=== PATIENT | male | born 1950 | race Caucasian/White ===

== ENCOUNTER 2018-05-22 10:08 | Inpatient (IN) | payer OTHER, BC ==
--- NOTE | 2018-05-22 06:28 | PDHPUP ---
History & Physical Update H&P update statement: This history and physical update is based on an assessment of the patient which was completed after admission or registration (within 24 hours), but prior to the surgery/procedure. H&P update: H&P reviewed & patient examined, no change in patient's condition since H&P completed
[2018-05-22] MEDS ORDERED: GABAPENTIN 300 MG CAP PO ONE (10:49)
[2018-05-22] MEDS ORDERED: ACETAMINOPHEN 500 MG TAB PO ONE (10:49)
[2018-05-22] MEDS ORDERED: ceFAZolin 2 GM/DEXTROSE 100 ML IV ONE (10:49)
[2018-05-22] MEDS ORDERED: LIDOCAINE 1% 2 ML INJ ID PRN (10:50)
[2018-05-22] MEDS ORDERED: LR 1,000 ML IV ONE (10:50)
[2018-05-22] MEDS ORDERED: BUPIVACAINE 0.25% 30 ML SDV ONE (11:00)
[2018-05-22] MEDS ORDERED: THROMBIN (BOVINE) 20,000 UNIT VIAL TP ONE (11:00)
[2018-05-22] MEDS ORDERED: CHLORHEXIDINE GLUC HIBICLENS 118 ML BTL TP ONE (11:00)
[2018-05-22] MEDS ORDERED: BACITRACIN 50,000 UNITS/10 ML SYR IRR ONE (11:01)
[2018-05-22] MEDS ORDERED: EPINEPHrine 1 MG/ML INJ ONE (11:01)
[2018-05-22] MEDS ORDERED: DEXMEDETOMIDINE HCL 400 MCG in NS 100 ML IV ONE (12:30)
--- NOTE | 2018-05-22 13:01 | PDANEPAE ---
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 Spoke with neurosurg about pre-MEP/SSEPs, glidescope intubation, Randa and MAP> 85 throughout ANE Past Medical History - Cardiovascular History Hx Hypertension: Yes Hx Arrhythmias: No Hx Chest Pain: No Hx Coronary Artery / Peripheral Vascular Disease: Yes Hx CHF / Valvular Disease: No Hx Palpitations: No Cardiovascular History Comment: htn. CAD with stent placed in 2011. ischemic cardiomyopathy - Pulmonary History Hx COPD: No Hx Asthma/Reactive Airway Disease: No Hx Recent Upper Respiratory Infection: No Hx Oxygen in Use at Home: No Hx Sleep Apnea: No Sleep Apnea Screening Result - Last Documented: Positive Pulmonary History Comment: phan triggers - Neurologic History Hx Cerebrovascular Accident: No Hx Seizures: No Hx Dementia: No Neurologic History Comment: left hand is numb and palm tingles currently - Endocrine History Hx Diabetes: No Endocrine History Comment: left thyroid nodule being evaluated this week - Renal History Hx Renal Disorders: No - Liver History Hx Hepatic Disorders: No - Neurological & Psychiatric Hx Hx Neurological and Psychiatric Disorders: Yes Neurological / Psychiatric History Comment: anxiety uses melatonin to sleep - Cancer History Hx Cancer: Yes Cancer History Comment: prostate ca recently diagnosed 03/2018. oncologist will evaluate thyroid nodule as well - Congenital Disorder History Hx Congenital Disorders: No - GI History Hx Gastrointestinal Disorders: Yes Gastrointestinal History Comment: reflux- uses omeprazole prn - Other Health History Other Health History: wears glasses for reading. doesn't like to wear hearing aides - Chronic Pain History Chronic Pain: No - Surgical History Prior Surgeries: appy 1962. vasectomy 1982. removed left salivary gland 1983. broken right wrist repair 1998. left shoulder clean up surgery 2007. cardiac stent 2011. right shoulder separation surgery 2014 ANE Review of Systems Review of Systems: - Exercise capacity METS (RN): 4 METS ANE Patient History - Allergies Allergies/Adverse Reactions: No Known Allergies Allergy (Verified 05/22/18 10:52) - Home Medications Home Medications: Atorvastatin Calcium [Lipitor 20 mg (*)] 20 mg PO HS 05/07/18 [Last Taken 21:00] Carvedilol [Coreg (*)] 3.125 mg PO BIDMEAL 05/07/18 [Last Taken 05/21/18 21:00] Clopidogrel Bisulfate [Plavix (*)] 75 mg PO HS 05/07/18 [Last Taken 05/12/18] Digoxin [Lanoxin 125 mcg (RX)] 125 mcg PO HS 05/07/18 [Last Taken 05/21/18 21:00 ] Fexofenadine HCl [Annamaria Allergy] 180 mg PO DAILY PRN 05/07/18 [Last Taken ] Melatonin [Melatonin 5 mg] 10 mg PO HS PRN 05/07/18 [Last Taken 05/21/18 21:00] Omeprazole 40 mg PO DAILY PRN 05/07/18 [Last Taken 03/07/18] Ramipril [Altace 2.5mg (*)] 2.5 mg PO HS 05/07/18 [Last Taken 05/21/18 21:00] - NPO status NPO Since - Liquids (Date): 05/22/18 NPO Since - Liquids (Time): 08:00 NPO Since - Solids (Date): 05/21/18 NPO Since - Solids (Time): 20:00 - Smoking Hx Smoking Status: Former smoker - Family Anes Hx Family Hx Anesthesia Complications: none ANE Labs/Vital Signs - Vital Signs Blood Pressure: 150/77 Heart Rate: 57 Respiratory Rate: 14 O2 Sat (%): 94 Height: 172.72 cm Weight: 79.832 kg ANE Physical Exam - Airway Neck exam: decreased ROM Mallampati Score: Class 3 Mouth exam: normal dental/mouth exam - Pulmonary Pulmonary: no respiratory distress, no rales or rhonchi - Cardiovascular Cardiovascular: regular rate and rhythym, no murmur, rub, or gallop - ASA Status ASA Status: III ANE Anesthesia Plan Anesthesia Plan: general endotracheal anesthesia Lines/Monitors: arterial line (MAP> 85, Glidescope intubation) Total IV Anesthesia: Yes
[2018-05-22] MEDS ORDERED: MIDAZOLAM 2 MG/2 ML VIAL ONE (13:02)
[2018-05-22] MEDS ORDERED: MIDAZOLAM 2 MG/2 ML VIAL IVP ONE (13:02)
[2018-05-22] MEDS ORDERED: SUCCINYLCHOLINE CHLORIDE 200 MG/10 ML SYR IVP ONE (13:09)
[2018-05-22] MEDS ORDERED: POLYETHYLENE GLYCOL 3350 17 GM PKT PO PRN (13:09)
[2018-05-22] MEDS ORDERED: LACTULOSE 20 GM/30 ML UDCUP PO PRN (13:09)
[2018-05-22] MEDS ORDERED: morphINE PCA 30 MG/30 ML PCA IV PRN (13:09)
[2018-05-22] MEDS ORDERED: NALOXONE HCL 0.4 MG/ML INJ IVP PRN ×2 (13:09→17:56)
[2018-05-22] MEDS ORDERED: diphenhydrAMINE 25 MG CAP PO PRN (13:09)
[2018-05-22] MEDS ORDERED: PROPOFOL 200 MG/20 ML VIAL ONE (13:09)
[2018-05-22] MEDS ORDERED: HYDROmorphONE/DILAUDID 1 MG/ML INJ IVP PRN (13:09)
[2018-05-22] MEDS ORDERED: MAGNESIUM HYDROXIDE 30 ML UDCUP PO PRN (13:09)
[2018-05-22] MEDS ORDERED: PROPOFOL/EMULSION 500 MG/50 ML BOTTLE IV ONE ×5 (13:09→17:18)
[2018-05-22] MEDS ORDERED: LIDOCAINE 2% 100 MG/5 ML SYR ONE (13:09)
[2018-05-22] MEDS ORDERED: REMIFENTANIL HCL 1 MG VIAL ONE ×2 (13:09→15:28)
[2018-05-22] MEDS ORDERED: ONDANSETRON DISINTEGRATING 4 MG TAB PO PRN (13:09)
[2018-05-22] MEDS ORDERED: BISACODYL 10 MG SUPP PR PRN (13:09)
[2018-05-22] MEDS ORDERED: ONDANSETRON 4 MG/2 ML VIAL IVP PRN ×2 (13:09→17:56)
[2018-05-22] MEDS ORDERED: LIDOCAINE HCL 160 MG/4 ML LTA KIT TP ONE (13:09)
[2018-05-22] MEDS ORDERED: NS 1,000 ML IV SCH (13:15)
[2018-05-22] MEDS ORDERED: DEXAMETHASONE 4 MG/ML VIAL ONE (14:34)
[2018-05-22] MEDS ORDERED: HYDROmorphONE/DILAUDID 2 MG/ML INJ ONE (17:33)
[2018-05-22] MEDS ORDERED: ONDANSETRON 4 MG/2 ML VIAL ONE (17:42)
[2018-05-22] MEDS ORDERED: fentaNYL 100 MCG/2 ML INJ IVP PRN (17:56)
[2018-05-22] MEDS ORDERED: oxyCODONE IR 5 MG TAB PO PRN (17:56)
[2018-05-22] MEDS ORDERED: PHENYLEPHRINE HCL 100 MCG/ML SYR IVP PRN (17:56)
[2018-05-22] MEDS ORDERED: MEPERIDINE 25 MG/0.5 ML AMP IVP PRN (17:56)
[2018-05-22] MEDS ORDERED: PROMETHAZINE HCL 25 MG/ML INJ IVP PRN (17:56)
[2018-05-22] MEDS ORDERED: METOCLOPRAMIDE 10 MG/2 ML VIAL IVP PRN (17:56)
[2018-05-22] MEDS ORDERED: ACETAMINOPHEN 500 MG TAB PO PRN (17:56)
[2018-05-22] MEDS ORDERED: ALBUTEROL 3 ML DEYVIAL IH PRN (17:56)
[2018-05-22] MEDS ORDERED: LR 500 ML IV PRN (17:56)
[2018-05-22] MEDS ORDERED: HYDROCODONE/APAP 5/325 TAB PO PRN (17:56)
[2018-05-22] MEDS ORDERED: DEXAMETHASONE 4 MG/ML VIAL IVP PRN (17:56)
[2018-05-22] MEDS ORDERED: LABETALOL HCL 5 MG/ML 20 ML MDV IVP PRN (17:56)
--- NOTE | 2018-05-22 18:22 | POSTOPPROG ---
Post Op Note Date of Operation: 05/22/18 Surgeon: Erlin Lara Installer: ANGELIQUE Arceo Anesthesiologist: DO Eva Anesthesia: GET(General Endotracheal), Local (Specify) Pre-op Diagnosis: critical cervical stenosis C3-C6 Post-op Diagnosis: cervical stenosis C3-C6 Indication: UE pain, myelopathy, cord compression Procedure: ACDF C5/6 with C4 corpectomy with Anterior spine fusion C3-C6 Findings: see op report Inf/Abcess present in the surg proc area at time of surgery?: No Depth: Deep Incisional (Fascial) EBL: 100-500 Total fluids administered: see anesthesia record Complications: none
--- NOTE | 2018-05-22 18:25 | SOAPPROG ---
SOAP Progress Note Assessment/Plan: Post Op Visit: S: Awake and alert. NAD. Pt with expected neck pain O: AFVSS/PERRLA/EOMI no droop CN 2-12 grossly intact +lt touch neck soft and supple CDI A/P: 67 yo male that is s/p C4 corpectomy with ACDF C3-C6 -orders in place -call with any questions or concerns -take medications as directed -pt seen by Dr Lara -admit to 2N -collar at all times -PT/OT/ST -post op xrays in am Objective: Vital Signs Temp Pulse Resp BP Pulse Ox 36.4 C 57 L 14 150/77 H 94 05/22/18 11:52 05/22/18 13:02 05/22/18 13:02 05/22/18 13:02 05/22/18 13:02 ICD10 Worksheet Patient Problems: Problems Problem Status Onset Arthrodesis status Acute Cervical spinal stenosis Acute Myelopathy Acute Spinal cord compression Acute 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 - ICD10 Problem Qualifiers (1) Cervical spinal stenosis (2) Myelopathy (3) Spinal cord compression (4) Spinal cord compression due to degenerative disorder of spinal column (5) Arthrodesis status
--- NOTE | 2018-05-22 19:06 | PDHOSCONS ---
History and Physical - Chief Complaint medical mgmt - History of Present Illness The pt is a 67 yo male with hx of HTN, CAD, Ischemic cardiomyopathy, CHF- systolic, LBBB, possible OTTO, and prostate cancer who is post op Day 0 s/p ACDF , c4 corpectomy, and c3-6 anterior fusion. We have been asked to provide medical management. He appears stable post op. Denies pain. VS are stable. History is mostly obtained form the medical record. PMHx: HLD, HTN, CAD, Ischemic Cardiomyopathy, CHF-Systolic, LBBB, possible OTTO, Left thyroid nodule, Insomnia, Anxiety, GERD, Prostate Cancer, PSHx: appendectomy SocHx: no tobacco use FmHx: non contributory History Information - Allergies/Home Medication List Allergies/Adverse Reactions: No Known Allergies Allergy (Verified 05/22/18 10:52) Home Medications: Atorvastatin Calcium [Lipitor 20 mg (*)] 20 mg PO HS 05/07/18 [Last Taken 21:00] Carvedilol [Coreg (*)] 3.125 mg PO BIDMEAL 05/07/18 [Last Taken 05/21/18 21:00] Clopidogrel Bisulfate [Plavix (*)] 75 mg PO HS 05/07/18 [Last Taken 05/12/18] Digoxin [Lanoxin 125 mcg (RX)] 125 mcg PO HS 05/07/18 [Last Taken 05/21/18 21:00 ] Fexofenadine HCl [Annamaria Allergy] 180 mg PO DAILY PRN 05/07/18 [Last Taken ] Melatonin [Melatonin 5 mg] 10 mg PO HS PRN 05/07/18 [Last Taken 05/21/18 21:00] Omeprazole 40 mg PO DAILY PRN 05/07/18 [Last Taken 03/07/18] Ramipril [Altace 2.5mg (*)] 2.5 mg PO HS 05/07/18 [Last Taken 05/21/18 21:00] I have personally reviewed and updated: medical history, social history - Social History Smoking Status: Former smoker Review of Systems Review of Systems: ROS: 10pt was reviewed & negative except for what was stated in HPI & below Physical Exam Physical Exam: Temp Pulse Resp BP Pulse Ox 36.5 C 59 L 18 124/58 H 95 05/22/18 19:02 05/22/18 18:17 05/22/18 19:02 05/22/18 19:02 05/22/18 19:03 O2 (L/minute) 6 Constitutional: no apparent distress Eyes: PERRL, EOMI Ears, Nose, Mouth, Throat: moist mucous membranes Cardiovascular: regular rate and rhythym, No edema Respiratory: no respiratory distress, no rales or rhonchi Gastrointestinal: normoactive bowel sounds Skin: warm Neurologic: No AAOx3 Psychiatric: encephalopathic Lymph, Heme, Immunologic: No petechiae Assessment & Plan Assessment: Arthrodesis status (Acute) Cervical spinal stenosis (Acute) Myelopathy (Acute) Spinal cord compression (Acute) Spinal cord compression due to degenerative disorder of spinal column (Acute) #s/p ACDF, C4 Corpectomy, C3-6 Anterior Fusion on 05/22 -post op care per NSG -DVT proph per NSg #HTN #Ischemic cardiomyopathy, CHF -Systolic not in exacerbation, LBBB #CAD #possible OTTO #Insomnia #Anxiety #GERD #Prostate Cancer #Left Thyroid Nodule Plan: cont BB cont Digoxin Cont Statin Hold Plavix DVT proph per NSG Pain mgmt cont appropriate home meds overall appears stable post operatively Thank you for this consult, we will follow along with you
[2018-05-22] MEDS: METHOCARBAMOL 750 MG TAB PO PRN (20:38)
[2018-05-22] MEDS ORDERED: MELATONIN 3 MG TAB PO PRN (21:00)
--- NOTE | 2018-05-22 21:12 | PDMN ---
Medical Necessity Medical necessity: [facility] [place] S320 Cervical Fusion, Anterior, A-1 day: 67 yo s/p ACDF C5/6 cervical disc fusion anterior, corpectomy c4, c3-c6 fusion: Corpectomy plus multi level surg meets IP med nec for IP stay.
[2018-05-22] MEDS: SENNOSIDES/DOCUSATE SODIUM TAB PO SCH (22:13)
[2018-05-22] MEDS: ATORVASTATIN CALCIUM 20 MG TAB PO SCH (22:14)
[2018-05-22] MEDS: FAMOTIDINE 20 MG TAB PO SCH (22:15)
[2018-05-22] MEDS: RAMIPRIL 2.5 MG CAP PO SCH (22:20)
[2018-05-22] MEDS: DIGOXIN 125 MCG TAB PO SCH (22:23)
[2018-05-22] MEDS: ceFAZolin 2 GM/DEXTROSE 100 ML IV SCH (22:37)
[2018-05-22] MEDS: HYDROCODONE/APAP 5/325 TAB PO PRN (23:43)
[2018-05-23] MEDS: ACETAMINOPHEN 500 MG TAB PO SCH ×5 (00:47→21:30)
[2018-05-23] MEDS: GABAPENTIN 300 MG CAP PO SCH ×5 (00:47→21:27)
[2018-05-23] MEDS: CARVEDILOL 3.125 MG TAB PO SCH ×3 (00:49→18:22)
[2018-05-23] MEDS: oxyCODONE IR 5 MG TAB PO PRN ×3 (04:58→21:49)
[2018-05-23] MEDS: ceFAZolin 2 GM/DEXTROSE 100 ML IV SCH (05:04)
[2018-05-23 06:21] LABS: PLATELET COUNT 226 10^3/uL (150-400)
--- NOTE | 2018-05-23 06:38 | GOP ---
[f rep st] OPERATIVE REPORT DATE OF OPERATION: 05/22/2018 SURGEON: Gideon Lara MD MACHINE BUNCH MAKER: Hammad Arceo PA-C. PREOPERATIVE DIAGNOSIS: Severe spinal stenosis C3-4, C4-5; moderately severe spinal stenosis C5-6; c ord compression; myelomalacia; myelopathy. POSTOPERATIVE DIAGNOSIS: Severe spinal stenosis C3-4, C4-5; moderately severe spinal stenosis C5-6; cord compression; myelomalacia; myelopathy. PROCEDURE PERFORMED: 1. Anterior cervical corpectomy with complete removal of the C4 vertebral body and decompression of the spinal canal behind the vertebral body of C4. We did anterior cervical diskectomy with bilateral decompressions C3-4 and C4-5 (67848, [id number]). Cervical corpectomy code of [id number]. 2. We did an anterior cervical diskectomy and decompression at C5-6 as well (89828). Anterior cervi marci instrumentation 4 levels C3, C4, C5, C6 (25069). 3. Placement of biomechanical intervertebral device at the C4 corpectomy site. 4. Placement of biomechanical intervertebral device at C5-6 (26897 x2). 5. Same incision bone graft harvest. FINDINGS: ESTIMATED BLOOD LOSS: 150 cc. INDICATIONS: The patient is a 67-year-old gentleman who came to see me with evidence of cervical mye lopathy on physical exam and profound cervical spinal stenosis at C3-4. On the left side at that lev el, the canal diameter measured 2 mm with flattening particularly of the left cervical cord, but ther e was a broad-based disk and osteophyte, complex at that level. There is also evidence of ossificati on of the posterior longitudinal ligament on the MRI with a large osteophyte behind the C3 vertebral body that was not particularly compressive, but it was concerning as it was in the midline. There we re some similar findings behind the vertebral body of C4, but not really comparable to what we saw at C3-4, and there was severe stenosis at C4-5 as well with very severe flattening of the cord even at that level. I suggested a 3 level anterior cervical diskectomy and fusion at C3-4, 4-5, 5-6, but I d id discuss with the patient the possibility of a corpectomy of C4 depending on what we found. I was concerned about the possibility of ossification of the posterior longitudinal ligament, but I was als o concerned given the severity of his stenosis my ability to adequately decompress the spinal canal a t those 2 levels with diskectomies alone. There was significant bone osteophyte formation behind the disk space and I wanted to make sure that we were able to completely decompress the cord and spinal canal there safely. I was somewhat concerned about diving through the PLL at the level of the actual discs at C3-4, 4-5, where there was such severe stenosis, and I discussed with the patient that isabel ectomy might be safer. I was going to make that decision intraoperatively, but he knew it was likely that a C4 corpectomy would be done. The risk of adjacent segment disease, nerve injury, spinal cord injury including quadriplegia was discussed. He knew there was a risk of dysphagia, esophageal inju ry, carotid injury, recurrent laryngeal nerve injury, screw and hardware malposition, malfunction, th e possible need for additional surgery including a posterior fixation surgery. He wanted to proceed despite these risks. I thought the likelihood was that we could do all this through the front. He a ccepted all these risks and wanted to proceed. DESCRIPTION OF PROCEDURE: The patient was brought to the operating room. He was intubated by the an esthesia service and care was taken to keep his MAPS above 85 throughout surgery. A glide scope was used. His neck was kept neutral after intubation. Baseline motors were performed before the patient was moved onto the bed, these demonstrated good responses. There were no concerns. An arterial bin e was placed by the anesthesia service, and this took us some time to accomplish. He was then moved over to the operating room table where a midline shoulder roll was placed and his head was carefully positioned on the repairer cylinder heads. The neck was kept neutral, the occiput gently extended. He was steri edgard prepped and draped in the usual fashion. In this case, we made a longitudinal incision in the neck up and down along the sternocleidomastoid. We dissected down through the platysma and then used a combination of sharp and blunt dissection med ial to the sternocleidomastoid and lateral to the strap muscles down to the prevertebral space. The carotid sheath, the vagus nerve and its contents were identified, and we found it relatively straight forward to get down the spinal canal. We dissected rostrally to get to the C3-4 level, and then diss ected all the longus colli muscles off the spine at C3, C4, C5, and C6. We then removed the ventral osteophytes at C3-4, C4-5, C5-6, and then placed a distraction pin at C3 and a distraction pin at C5. We then shot an x-ray and the pins were in excellent position. The C3-4 disk had a relatively shal low angle on it and our exposure from below really was going to make it very difficult to get a wide decompression at C3-4. There was no way that we were going to be radically able to remove the rostra l posterior lip of C4 from that approach, and because of this as well as the severity of the stenosis and my concern about causing a cord injury, I thought it was more prudent after looking at this alig nment that we should do a C4 corpectomy. We therefore distracted between the distraction pins, evoked potentials were done, the motors were fi ne. We then removed the disk and the soft tissues surrounding the C3-4 disk and the C4-5 disk comple tely. We removed all the soft tissue from this ventral portion of C4. We then took a Leksell and mosley rvested almost all of the C4 vertebral body, and then used the drill to perform the remaining corpect garrick down to the posterior margin of the vertebral body. We opened the posterior longitudinal ligamen t behind the C4 vertebral body where the stenosis was not as severe, and then worked our way toward t he C3-4 and the C4-5 disk space. I was worried about dural adhesions, and so I was very, very carefu l as I went through the posterior longitudinal ligament. It turned out there was indeed a plane betw een the dura and the PLL, and I was happy about this. We worked our way inferiorly toward the C4-5 l evel and rostrally toward the C3-4 level. We completely decompressed C3-4 centrally. There was inde ed an osteophyte behind C3 and I removed the inferior lip of this, but we could not obviously get com pletely behind the C3 vertebral body. We worked our way out into the neural foramen at C3-4, and the n came down to C4-5 where we decompressed from the pedicle to the pedicle and g ot great decompressions and did foraminotomies here. Motor evoked potentials were stable. We stacke d a 25 mm anatomic PTC cage to be placed at the C3-4 level, packed it with a large amount of bone aut ograft. It was then inserted and carefully positioned under fluoroscopic guidance, and I was happy w ith the position of that device. We then removed our distraction pin, placed a Gel-Foam bullet in the hole that remained, and then cam e down at C6, distracted at C5-6, and under the microscope we removed the disk and the cartilaginous endplates. We opened the posterior longitudinal ligament, decompressed the thecal sac and the neural foramina bilaterally, got great decompressions there. We then chose an 8 mm PEEK intervertebral dev ice, packed it with bone autograft, it was inserted at C5-6. We shot an x-ray. All the hardware was in great position. Motor evoked potentials were perfect. We then took a 65 mm Zevo plate, increase d the lordosis on the plate, and placed a single screw at C3, a single screw at C6, they were firmly seated. We then checked an x-ray and then we placed the remaining screw at C3, this screw was the le ft screw at C3. We used a 17 mm screw there. We use 15 mm screws at C5 and C6. There were a total of 6 screws and they were all locked according to company specification and verified with people in t he room. Final x-ray looked excellent. We then achieved meticulous hemostasis and then closed the incision in multiple layers using Vicryl s uture. Steri-Strips were applied the skin. The patient was reversed from anesthesia, extubated, and transferred to recovery room in stable condition. There were no complications. COMPLICATIONS: None. /[id number]/MODL
--- NOTE | 2018-05-23 07:15 | NEUSURGPN ---
Date of Surgery: 05/22/18 Post Op Day: 1 Assessment/Plan: Assessment: 67 yo male that is s/p C4 corpectomy with ACDF C3-C6 POD #1 Plan: -orders in place -take medications as directed -pt seen by Dr Lara -pt doing well -ivan curiel this am -ok to go to 3N -continue to monitor swallowing -CDI -collar at all times-tolerating well-no skin issues -PT/OT/ST -post op xrays pending this am -warning signs given -call with any questions Subjective: Awake and alert. Pt rested fine. No new complaints or concerns. No mosley/cp/sob/ abd or gu complaints. No f/c/n/v/d. Objective: AFVSS/PERRLA/EOMI no droop CN 2-12 grossly intact +lt touch neck soft and supple CDI Neuro Check Frequency: per routine Urinary Catheter in Place: Yes Urinary Catheter Indication: Other (Use Comment) (to be removed this am) Catheter Insertion Date: 05/22/18 - Physician Discussed Patient with : Marco Patient Seen by : Marco Neurosurgery Physical Exam - Vitals, I&O, Labs I and O 05/22/18 05/23/18 05/24/18 05:59 05:59 05:59 Intake Total 2524 Output Total 2250 Balance 274 Weight 79.832 kg Intake: IV Intake (ml) 1900 IV Infused (ml) 624 Ns 1,000 ml @ 75 mls/hr 624 IV CONT BETTY Rx#: [id number] Output: Urine (ml) 2100 Catheter 2100 Estimated Blood Loss (ml) 150 Vital Signs Temp Pulse Resp BP Pulse Ox 36.3 C 58 L 10 L 147/99 H 93 05/22/18 20:00 05/23/18 04:00 05/23/18 03:00 05/23/18 04:00 05/23/18 04:00 Laboratory Results 05/23/18 05:45 05/23/18 05:45 ICD10 Worksheet Patient Problems: Problems Problem Status Onset Arthrodesis status Acute Cervical spinal stenosis Acute Myelopathy Acute Spinal cord compression Acute 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 - ICD10 Problem Qualifiers (1) Cervical spinal stenosis (2) Myelopathy (3) Spinal cord compression (4) Spinal cord compression due to degenerative disorder of spinal column (5) Arthrodesis status
[2018-05-23] MEDS ORDERED: CETIRIZINE 10 MG TAB PO PRN (09:00)
[2018-05-23] MEDS ORDERED: PANTOPRAZOLE SODIUM 40 MG TAB PO PRN (09:00)
[2018-05-23] MEDS: SENNOSIDES/DOCUSATE SODIUM TAB PO SCH ×2 (09:45→21:28)
[2018-05-23] MEDS: FAMOTIDINE 20 MG TAB PO SCH ×2 (09:45→21:27)
--- NOTE | 2018-05-23 11:42 | ASMTCASEMG ---
Living Arrangements What is your living Answers: With Spouse arrangement? Who do you live with? Type Of Residence What kind of residence do Answers: House you live in? Discharge Plan Comments Coordination Status Comments Notes: Patient is a 67yo male who comes to [facility] for surgery due to neuropathy of left hand and spinal stenosis, cervical region. OT/PT evals have been ordered. D/C plan TBD. CM will follow. Date Signed: 05/23/2018 11:42 AM Electronically Signed By:Lindsay Norwood LCSW
[2018-05-23] MEDS: HYDROCODONE/APAP 5/325 TAB PO PRN (12:02)
[2018-05-23] MEDS: METHOCARBAMOL 750 MG TAB PO PRN (15:03)
--- NOTE | 2018-05-23 17:18 | HOSPPROG ---
Hospitalist Progress Note Assessment/Plan: 67 yo M pod 1 from ACDF. COmorbidities noted CHF: euvolemic per pt, ef has normalized continue carvedilol, digoxin, FLOR-I cad: last stent years ago, ok to hold antiplatelet prostate ca: continue casodex pain: well controlled proph: given prostate CA and antiandrogen therapy, he his high risk for VTE rec pharm VTE proph when ok from neurosurgical standpoint Subjective: pain well controlled. walking in hallway Objective: Vital Signs Temp Pulse Resp BP Pulse Ox 36.5 C 62 16 140/76 H 96 05/23/18 15:14 05/23/18 15:14 05/23/18 15:14 05/23/18 15:14 05/23/18 15:14 Laboratory Results 05/23/18 05:45 05/23/18 05:45 05/22/18 05/23/18 05/24/18 05:59 05:59 05:59 Intake Total 2524 414 Output Total 2250 235 Balance 274 179 - Physical Exam Constitutional: no apparent distress, appears nourished Eyes: PERRL, anicteric sclera Ears, Nose, Mouth, Throat: moist mucous membranes, hearing normal, other (neck in hard collar) Cardiovascular: regular rate and rhythym, no murmur, rub, or gallop Respiratory: no respiratory distress, no rales or rhonchi Gastrointestinal: normoactive bowel sounds, soft, non-tender abdomen Genitourinary: no bladder fullness, No curiel in urethra Skin: warm, normal color Musculoskeletal: full muscle strength ICD10 Worksheet Patient Problems: Problems Problem Status Onset Arthrodesis status Acute Cervical spinal stenosis Acute Myelopathy Acute Spinal cord compression Acute 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
[2018-05-23] MEDS: ATORVASTATIN CALCIUM 20 MG TAB PO SCH (21:27)
[2018-05-23] MEDS: BICALUTAMIDE 50 MG TAB PO SCH (21:30)
[2018-05-23] MEDS: RAMIPRIL 2.5 MG CAP PO SCH (21:41)
[2018-05-23] MEDS: DIGOXIN 125 MCG TAB PO SCH (21:42)
[2018-05-24] MEDS: METHOCARBAMOL 750 MG TAB PO PRN ×4 (03:52→17:05)
[2018-05-24] MEDS: GABAPENTIN 300 MG CAP PO SCH ×3 (05:28→20:38)
[2018-05-24] MEDS: ACETAMINOPHEN 500 MG TAB PO SCH (05:28)
[2018-05-24] MEDS: HYDROCODONE/APAP 5/325 TAB PO PRN ×5 (05:30→22:14)
--- NOTE | 2018-05-24 08:57 | NEUSURGPN ---
Date of Surgery: 05/22/18 Post Op Day: 2 Assessment/Plan: 67 yo male that is s/p C4 corpectomy with ACDF C3-C6 POD #2 Plan: - neuro stable - pain control - monitor swallowing, slightly worse this morning. Speech therapy to see - postop x-rays with hardware in good placement - PT/OT - Hard collar - dispo: likely discharge tomorrow Discussed with Dr. Lara. Subjective: Having some difficulties swallowing this morning. Objective: Awake. Alert. PERRL. EOMI Muscle strength full at 5/5 Sensation intact Incision c/d/i Catheter Insertion Date: 05/22/18 - Physician Discussed Patient with : Marco Neurosurgery Physical Exam - Vitals, I&O, Labs I and O 05/23/18 05/24/18 05/25/18 05:59 05:59 05:59 Intake Total 2524 814 Output Total 2250 235 Balance 274 579 Weight 79.832 kg Intake: Oral (ml) 515 IV Intake (ml) 1900 IV Infused (ml) 624 299 Ns 1,000 ml @ 75 mls/hr 624 299 IV CONT BETTY Rx#: [id number] Output: Urine (ml) 2100 235 Catheter 2100 235 Estimated Blood Loss (ml) 150 Other: Intake Quantity Yes Sufficient Number of Voids Catheter 1 Vital Signs Temp Pulse Resp BP Pulse Ox 36.3 C 67 17 144/65 H 94 05/24/18 07:17 05/24/18 07:17 05/24/18 07:17 05/24/18 07:17 05/24/18 07:17 Laboratory Results 05/23/18 05:45 05/23/18 05:45 ICD10 Worksheet Patient Problems: Problems Problem Status Onset Arthrodesis status Acute Cervical spinal stenosis Acute Myelopathy Acute Spinal cord compression Acute 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
[2018-05-24] MEDS: FAMOTIDINE 20 MG TAB PO SCH ×2 (09:12→20:38)
[2018-05-24] MEDS: SENNOSIDES/DOCUSATE SODIUM TAB PO SCH ×2 (09:13→20:39)
[2018-05-24] MEDS: CARVEDILOL 3.125 MG TAB PO SCH ×2 (09:13→17:05)
[2018-05-24] MEDS ORDERED: ACETAMINOPHEN 325 MG TAB PO PRN (09:51)
--- NOTE | 2018-05-24 11:01 | ASMTCMCOM ---
CM Note CM Note Notes: CM met with pt. He reports he was feeling better yesterday and wants to stay here until he is feeling better again. Pt and asked about hospital bed, CM spoke to PA and she said he wouldn't likely qualify for one, CM updated family and they were understanding. CM provided list if they wanted to attempt to rent one independently, pt and family agreeable. CM submit referral for [facility]. Pt and appreciative, pt qualifies due to type of surgery. Plan: home with [facility] Date Signed: 05/24/2018 11:01 AM Electronically Signed By:KIMBERLI Coreas
--- NOTE | 2018-05-24 17:14 | HOSPPROG ---
Hospitalist Progress Note Assessment/Plan: 67 yo M pod 2 from ACDF. COmorbidities noted CHF: euvolemic per pt, ef has normalized continue carvedilol, digoxin, FLOR-I cad: last stent years ago, ok to hold antiplatelet prostate ca: continue casodex pain: well controlled proph: given prostate CA and antiandrogen therapy, he his high risk for VTE rec pharm VTE proph when ok from neurosurgical standpoint Subjective: feels better this PM Objective: Vital Signs Temp Pulse Resp BP Pulse Ox 36.7 C 64 18 123/59 H 92 05/24/18 15:47 05/24/18 17:05 05/24/18 15:47 05/24/18 17:05 05/24/18 15:47 Laboratory Results 05/23/18 05:45 05/23/18 05:45 05/23/18 05/24/18 05/25/18 05:59 05:59 05:59 Intake Total 2524 814 Output Total 2250 235 Balance 274 579 - Physical Exam Constitutional: no apparent distress, appears nourished Eyes: PERRL, anicteric sclera Ears, Nose, Mouth, Throat: moist mucous membranes, hearing normal Cardiovascular: regular rate and rhythym, no murmur, rub, or gallop, No systolic murmur Respiratory: no respiratory distress, no rales or rhonchi Gastrointestinal: normoactive bowel sounds, soft, non-tender abdomen Genitourinary: no bladder fullness, No curiel in urethra Skin: warm, normal color Musculoskeletal: full muscle strength ICD10 Worksheet Patient Problems: Problems Problem Status Onset Arthrodesis status Acute Cervical spinal stenosis Acute Myelopathy Acute Spinal cord compression Acute 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
[2018-05-24] MEDS: ATORVASTATIN CALCIUM 20 MG TAB PO SCH (20:36)
[2018-05-24] MEDS: BICALUTAMIDE 50 MG TAB PO SCH (20:36)
[2018-05-24] MEDS: DIGOXIN 125 MCG TAB PO SCH (20:37)
[2018-05-24] MEDS: RAMIPRIL 2.5 MG CAP PO SCH (20:40)
[2018-05-25] MEDS: HYDROCODONE/APAP 5/325 TAB PO PRN ×3 (02:08→10:59)
[2018-05-25] MEDS: GABAPENTIN 300 MG CAP PO SCH (05:48)
[2018-05-25] MEDS: METHOCARBAMOL 750 MG TAB PO PRN (05:50)
[2018-05-25] MEDS ORDERED: ENOXAPARIN 40 MG/0.4 ML SYR SC SCH (09:00)
[2018-05-25] MEDS: SENNOSIDES/DOCUSATE SODIUM TAB PO SCH (09:26)
[2018-05-25] MEDS: FAMOTIDINE 20 MG TAB PO SCH (09:26)
[2018-05-25] MEDS: CARVEDILOL 3.125 MG TAB PO SCH (09:26)
--- NOTE | 2018-05-25 12:13 | NEUSURGPN ---
Date of Surgery: 05/22/18 Post Op Day: 3 Assessment/Plan: 67 yo male that is s/p C4 corpectomy with ACDF C3-C6 POD #3. swallow stable. pain controlled. Post op films look great. Plan: - Home today Discussed with Dr. Lara. Subjective: some trouble with fijian muffin but otherwise no issues with swallow. No secretions, no coughing. He has some minor shoulder pain but well controlled. NO extremity complaints. Objective: AAOx4 NAD cnii-xii grossly intact speech clear, voice strong eomi, PEARLA MAEx4, 5/5= SILT incision CDI. Catheter Insertion Date: 05/22/18 - Physician Discussed Patient with : [facility] Physical Exam - Vitals, I&O, Labs I and O 05/24/18 05/25/18 05/26/18 05:59 05:59 05:59 Intake Total 814 500 Output Total 235 Balance 579 500 Intake: Oral (ml) 515 500 IV Infused (ml) 299 Ns 1,000 ml @ 75 mls/hr 299 IV CONT BETTY Rx#: [id number] Output: Urine (ml) 235 Catheter 235 Other: Intake Quantity Yes Sufficient Number of Voids Catheter 1 Toilet 3 Vital Signs Temp Pulse Resp BP Pulse Ox 36.9 C 64 16 155/67 H 93 05/25/18 07:38 05/25/18 09:26 05/25/18 07:38 05/25/18 09:26 05/25/18 07:38 Laboratory Results 05/23/18 05:45 05/23/18 05:45 ICD10 Worksheet Patient Problems: Problems Problem Status Onset Arthrodesis status Acute Cervical spinal stenosis Acute Myelopathy Acute Spinal cord compression Acute 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
[2018-05-25 12:41] VITALS: BP 164/81
--- NOTE | 2018-05-25 13:41 | ASMTLACE ---
[facility] Length of stay for Answers: 3 days current admission Acuity / Level of Answers: Yes Care: Did the patient have an inpatient admission? Comorbidities - select Answers: Any tumor (including all that apply lymphoma or leukemia) Coronary Artery Disease Other Notes: HTN # of Emergency department Answers: 0 visits in the last 6 months Social determinants Answers: Mental health diagnosis (anxiety, depression, pers onality disorders, etc.) Score: 14 Date Signed: 05/25/2018 01:40 PM Electronically Signed By:Mis Priest
--- NOTE | 2018-05-25 13:44 | ASMTDCNOTE ---
Case Management Discharge Discharge Order Complete? Answers: Yes Patient to Obtain Answers: via Family Medications Transportation Arranged Answers: Family/Friends Faxed Final Orders Answers: Yes Agency/Facility Transfer Answers: Yes Report Printed & Faxed to Receiving Agency Family Notified Answers: Yes Discharge Comments Notes: Pt to receive homecare through [facility]. [facility] notified of pt's d/c. Date Signed: 05/25/2018 01:43 PM Electronically Signed By:Mis Priest
--- NOTE | 2018-05-25 14:04 | GDS ---
[f rep st] DISCHARGE SUMMARY PROCEDURES: C4 corpectomy with C3-6 ACDF. CONSULTING TEAMS,: The hospitalist team. HOSPITAL COURSE: The patient is a pleasant 67-year-old male who was admitted after an elective C3-6 ACDF and C4 corpectomy for myeloradiculopathy. Postoperatively he did well. His diet was advanced. His pain was controlled. His postoperative films showed stable hardware in good position. He did h ave some issues with his swallowing that were minor and is doing well with a good oral intake. He wa s seen by PT and OT and ultimately cleared for discharge on 05/25/2018. See dated service progress n ote for neurological, physical exam and vitals. Please see final date of discharge planning for home medication and reconciliation. Patient should follow up with Dr. Lara in 2 weeks time for a posto perative wound check. /[id number]/MODL
== END 2018-05-25 13:48 | disposition home or self-care (01) | DRG 472 ==
LOC: F3E 10:08 → F3N 14:22 → F2N 17:16 → F3N 05-23 14:49
PROVIDERS: ADMIT Neurological Surgery; ATTEND Neurological Surgery
DX: M48.02 Spinal stenosis, cervical region (principal); G95.9 Disease of spinal cord, unspecified; I10 Essential (primary) hypertension; I25.10 Atherosclerotic heart disease of native coronary artery without angina pectoris; I25.5 Ischemic cardiomyopathy; Z95.5 Presence of coronary angioplasty implant and graft
CPT/HCPCS: 92526-GN; 92610-GN; 97116-GP; 97161-GP; 97165-GO; 97530-GO; 97535-GO; C1713; J0171; J0330; J0690; J1100; J1170; J1650; J2001; J2250; J2405; J2704